=== PATIENT | male | born 1945 | race Caucasian/White ===

== ENCOUNTER 2017-12-17 22:12 | Emergency (ER) | payer MEDICARE, BC ==
[~2017-12-17] VITALS: Ht 172.7 cm; Wt 70.5 kg
[2017-12-17 22:25] VITALS: TEMP 97.9
[2017-12-18] MEDS ORDERED: PRINIVIL20 MG PO (00:04)
[2017-12-18] MEDS ORDERED: NAMENDA 10MG TA10 MG PO (00:04)
[2017-12-18] MEDS ORDERED: WELLBUTRIN XL150 MG PO (00:05)
[2017-12-18] MEDS ORDERED: ZOCOR 40MG40 MG PO (00:05)
[2017-12-18] MEDS ORDERED: ARICEPT10 MG PO (00:05)
[2017-12-18] MEDS ORDERED: VOLTAREN 75 DR75 MG PO (00:05)
[2017-12-18] MEDS ORDERED: PLAVIX 75MG TAB75 MG PO (00:06)
[2017-12-18] MEDS ORDERED: CLARITIN 1010 MG/TAB PO (00:06)
[2017-12-18] MEDS ORDERED: ZYRTEC SYRUP1 MG/ML PO (00:06)
[2017-12-18] MEDS ORDERED: FLONASE NASAL S16 GM NS (00:06)
[2017-12-18 01:36] LABS: BASO % 0.2 % (0.0-2.0); EOS % 0.4 % (0-4.0); GRAN # 8.5 (1.4-6.5); GRAN % 84.1 % (42.2-75.2); HEMOGLOBIN 11.9 g/dl (13.5-18.0); LYMPH # 0.9 (1.2-3.4); LYMPH % 8.4 % (20.0-51.0); MEAN CELL VOLUME 94 fl (80.0-100.0); MEAN CORPUSCULAR HEMOGLOBIN 32 pg (27.0-31.0); MEAN CORPUSCULAR HGB CONC 34 g/dl (33.0-37.0); MEAN PLATELET VOLUME 9.8 fl (7.4-10.4); MONO # 0.7 (0.1-0.6); MONO % 6.6 % (1.7-9.3); PLATELET COUNT 179 K/mm3 (130-400); RED BLOOD COUNT 3.71 M/mm3 (4.20-5.60); REDCELL DISTRIBUTION WIDTH-CV 11.7 % (11.5-14.5)
[2017-12-18 01:40] LABS: INR 0.9 (0.8-3.0); PROTHROMBIN TIME 10.6 SECONDS (9.7-12.8)
[2017-12-18 01:45] LABS: ALBUMIN 3.9 gm/dL (3.5-5.0); BILIRUBIN,TOTAL 0.4 mg/dL (0.0-1.0); CALCIUM 8.9 mg/dL (8.4-10.2); CREATININE, serum 0.99 mg/dL (0.66-1.25); POTASSIUM 4.2 mmol/L (3.4-5.0); TOTAL PROTEIN 6.9 gm/dL (6.4-8.2)
[2017-12-18 02:33] VITALS: BP 162/79; PULSE 56
== END 2017-12-18 02:55 | disposition short-term general hospital (02) ==
LOC: COL.ER 22:12
PROVIDERS: Emergency Medicine
DX: S22.42XA Multiple fractures of ribs, left side, initial encounter for closed fracture (principal); I10 Essential (primary) hypertension; E78.5 Hyperlipidemia, unspecified; Z79.82 Long term (current) use of aspirin; Z79.01 Long term (current) use of anticoagulants; F03.90 Unspecified dementia, unspecified severity, without behavioral disturbance, psychotic disturbance, mood disturbance, and anxiety; Z86.718 Personal history of other venous thrombosis and embolism; Z79.51 Long term (current) use of inhaled steroids; W01.10XA Fall on same level from slipping, tripping and stumbling with subsequent striking against unspecified object, initial encounter
CPT/HCPCS: A9284; J2270